=== PATIENT | female | born 1990 | race Caucasian/White ===

== ENCOUNTER 2016-06-28 13:32 | Emergency (ER) | payer MEDICAID ==
[~2016-06-28] VITALS: Ht 157.5 cm; Wt 56.0 kg
[2016-06-28 13:45] VITALS: BP 126/76; PULSE 69; RESP 16; TEMP 98.3; O2SAT 100
--- NOTE | 2016-06-28 14:09 | PD ---
HPI . b/l ankle pain for 5 days Chief Complaint: Musculoskeletal Complaint Time Seen by Provider: 14:09 Travel History International Travel<30 days: No Contact w/Intl Traveler<30days: No Traveled to known affect area: No History of Present Illness HPI 26-year-old female with no significant past medical history here with complaints of bilateral ankle pain for about 5 days after jumping off the back of a truck. Patient says she has been experiencing pain mainly when walking. She rates the pain when walking as 8/10. At rest about a 6/10. She has not tried any nqoz-vse-[id number] NSAIDs. She has not been using ice. She has not wrapped the area. She wants to find out what is going on with her ankles. She has no primary care in the area. At the time of examination patient denies any fever, chills, chest pain, shortness of breath, nausea, vomiting or abdominal pain. She denies any fatigue or weakness. PFSH Past Medical History Diminished Hearing: No Tetanus Vaccination: Unknown Influenza Vaccination: No ?: Not LMP: 06/09/16 Social History Alcohol Use: Yes (COUPLE TIMES PER WEEK) Tobacco Use: Yes (07/01 PPD) Substance Use: No Allergies-Medications (Allergen,Severity, Reaction): Coded Allergies: No Known Allergies (Unverified , 06/28/16) Reported Meds & Prescriptions Reported Meds & Active Scripts Active Ibuprofen 800 Mg Tab 800 Mg PO TID Review of Systems General / Constitutional: No: Fever Eyes: No: Visual changes HENT: No: Headaches Cardiovascular: No: Chest Pain or Discomfort Respiratory: No: Shortness of Breath Gastrointestinal: No: Abdominal Pain Genitourinary: No: Dysuria Musculoskeletal: Positive: Pain (bilateral ankle pain) Skin: No Rash Neurologic: No: Weakness Psychiatric: No: Depression Endocrine: No: Polydipsia Hematologic/Lymphatic: No: Easy Bruising Physical Exam Narrative GENERAL: AAO x 3, no acute distress, Well-nourished, well-developed patient. SKIN: Warm and dry. No visible rashes or bruising. HEAD: Normocephalic and atraumatic. EYES: No scleral icterus. No injection or drainage. EOM intact, PERRLA ENT: No nasal drainage noted. Mucous membranes pink. Airway patent. NECK: Supple, trachea midline. No JVD. CARDIOVASCULAR: Regular rate and rhythm without murmurs, gallops, or rubs. RESPIRATORY: Breath sounds equal bilaterally. No accessory muscle use. No rhonchi or rales. GASTROINTESTINAL: Abdomen soft, non-tender, nondistended. EXTREMITIES: No cyanosis or edema. According to [place] ankle rules patient does not meet criteria for imaging. There is no point tenderness, no edema, ROM is normal. Flexion and extension is normal. BACK: Nontender without obvious deformity. No CVA tenderness. PSYCH: AAO x 3, normal affect. Data Data Last Documented VS Vital Signs Date Time Temp Pulse Resp B/P Pulse Ox O2 Delivery O2 Flow Rate FiO2 06/28/16 13:45 98.3 69 16 126/76 100 Orders ^ Travon Bandage (06/28/16 14:15) MDM Medical Decision Making Medical Screen Exam Complete: Yes Emergency Medical Condition: Yes Medical Record Reviewed: Yes Differential Diagnosis Ankle sprain, ankle contusion, less likely ankle fractures Narrative Course 26-year-old female with no significant past medical history here with complaints of bilateral ankle pain for about 5 days after jumping off the back of a truck. Patient says she has been experiencing pain mainly when walking. She rates the pain when walking as 8/10. At rest about a 6/10. She has not tried any ryzx-zem-[id number] NSAIDs. She has not been using ice. She has not wrapped the area. She wants to find out what is going on with her ankles. She has no primary care in the area. At the time of examination patient denies any fever, chills, chest pain, shortness of breath, nausea, vomiting or abdominal pain. She denies any fatigue or weakness. Patient seen and examined. She does not meet criteria per [place] ankle rules. Discussed with patient that imaging is not indicated. This is likely a sprain. Discussed treatment with WILIAN. Ibuprofen provided. Advise follow with primary care provider Patient verbalized understanding of instructions, questions were answered, and thanked me for their care. I advised them if their condition worsens, please return to the nearest emergency room for further care. Diagnosis Primary Impression: Ankle sprain Qualified Code: S93.409A - Sprain of ankle, unspecified laterality, unspecified ligament, initial encounter Patient Instructions: Ankle Sprain (ED), General Instructions Additional Instructions: Please return to emergency department if your symptoms return or worsen. Follow up with your primary care provider. Take medications as prescribed. You can continue to rest her ankles. Use ice daily. Use Travon wrap as needed. Use ibuprofen for inflammatory relief as well as pain relief. Med/Other Pt SpecificInfo: Prescription(s) given Scripts Ibuprofen 800 Mg [id number] Mg PO TID #30 TAB Prov:Marcia Day DO 06/28/16 Disposition: 01 DISCHARGE HOME Condition: Stable Katherine Gardner Jun 28, 2016 14:09
[2016-06-28] MEDS ORDERED: IBUP800T23 PO (14:16)
== END 2016-06-28 14:40 | disposition home or self-care (01) ==
LOC: PHEFT 13:32
DX: S93.402A Sprain of unspecified ligament of left ankle, initial encounter (principal); S93.401A Sprain of unspecified ligament of right ankle, initial encounter; F17.200 Nicotine dependence, unspecified, uncomplicated; W17.89XA Other fall from one level to another, initial encounter; Y93.39 Activity, other involving climbing, rappelling and jumping off
CPT/HCPCS: 99283

== ENCOUNTER 2017-02-12 04:43 | Inpatient (IN) | payer MEDICAID ==
[2017-02-12] VITALS (8 sets, daily range): BP systolic 116–167; BP diastolic 70–89; PULSE 5–95; RESP 16–22; TEMP 97.5–98.2; O2SAT 100
[~2017-02-12] VITALS: Ht 160 cm; Wt 88.0 kg
[~2017-02-12 04:43] MED LIST: IBUP800T23 PO
[2017-02-12 05:50] LABS: AUTOMATED NEUTROPHIL # 7.4 TH/MM3 (1.8-7.7); BASOPHIL % 0.4 % (0.0-2.0); EOSINOPHIL # 0.2 TH/MM3 (0-0.4); EOSINOPHIL % 1.7 % (0.0-4.0); HEMATOCRIT 35.9 % (35.0-46.0); LYMPH % 27.1 % (9.0-44.0); LYMPHOCYTE # 3.2 TH/MM3 (1.0-4.8); MEAN CELL VOLUME 89.8 FL (80.0-100.0); MEAN CORPUSCULAR HEMOGLOBIN 29.4 PG (27.0-34.0); MEAN CORPUSCULAR HGB CONC 32.8 % (32.0-36.0); MONO % 8.1 % (0.0-8.0); NEUT % 62.7 % (16.0-70.0); PLATELET COUNT 229 TH/MM3 (150-450); RED CELL DISTRIBUTION WIDTH 13.9 % (11.6-17.2); WHITE BLOOD COUNT 11.8 TH/MM3 (4.0-11.0)
--- NOTE | 2017-02-12 05:52 | PD ---
HPI Chief Complaint: Related Problem Time Seen by Provider: 05:39 Travel History International Travel<30 days: No Contact w/Intl Traveler<30days: No Traveled to known affect area: No History of Present Illness HPI The patient is a 26-year-old female, G 3, P1, A1 which was stillborn who is unsure of her last menstrual period, 2 days of spotting and august, 2 days of spotting in September and nothing in October or beyond to this date. She denies any bleeding. He complains of severe midline pelvic pain for about 2 hours. She denies any fever. She has no OB follow-up and has never had an ultrasound. PFS Past Medical History Diminished Hearing: No ?: LMP: UNSURE POSSIBLY OCTOBER : 3 Para: 1 Miscarriage: 1 Social History Alcohol Use: Yes (COUPLE TIMES PER WEEK) Tobacco Use: Yes (07/01 PPD) Substance Use: No Allergies-Medications (Allergen,Severity, Reaction): Coded Allergies: No Known Allergies (Unverified , 06/28/16) Reported Meds & Prescriptions Reported Meds & Active Scripts Active Ibuprofen 800 Mg Tab 800 Mg PO TID Review of Systems Except as stated in HPI: all other systems reviewed are Neg Physical Exam Narrative GENERAL: The patient is alert, oriented 3 in moderate to severe distress with her pelvic pain. Her vital signs show pulse of 95 and blood pressure 167/89 but are otherwise normal. The temperature is 97.5. The patient is moving about continuously SKIN: Focused skin assessment warm/dry. HEAD: Atraumatic. Normocephalic. EYES: Pupils equal and round. No scleral icterus. No injection or drainage. ENT: No nasal bleeding or discharge. Mucous membranes pink and moist. NECK: Trachea midline. No JVD. CARDIOVASCULAR: Regular rate and rhythm. No murmur appreciated. RESPIRATORY: No accessory muscle use. Clear to auscultation. Breath sounds equal bilaterally. GASTROINTESTINAL: Abdomen soft, non-tender, nondistended. Hepatic and splenic margins not palpable. MUSCULOSKELETAL: No obvious deformities. No clubbing. No cyanosis. No edema. NEUROLOGICAL: Awake and alert. No obvious cranial nerve deficits. Motor grossly within normal limits. Normal speech. PSYCHIATRIC: The patient is extremely anxious; insight and judgment normal. GENITOURINARY: Normal external genitalia without lesions or erythema. Vaginal vault without blood and there is a white, nhw-gruq-sfqhwbst drainage. Cervical os was closed without drainage. There is exquisite cervical motion tenderness. Uterus exquisitely tender and 20 weeks enlarged. Bilateral adnexa slightly tender without masses. The bedside ultrasound shows approximately 20 weeks size fetus with no heart movement seen. Data Data Last Documented VS Vital Signs Date Time Temp Pulse Resp B/P (MAP) Pulse Ox O2 Delivery O2 Flow Rate FiO2 02/12/17 05:10 69 02/12/17 05:05 22 167/89 (115) 02/12/17 04:52 97.5 100 Orders Orders Complete Blood Count With Diff (02/12/17 05:25) Beta Hcg (Quant/Titer) (02/12/17 05:25) Iv Access Insert/Monitor (02/12/17 05:25) Oxygen Administration (02/12/17 05:25) Oximetry (02/12/17 05:25) Basic Metabolic Panel (Bmp) (02/12/17 05:39) Complete Rh (02/12/17 05:39) Urinalysis - C+S If Indicated (02/12/17 05:39) Us Pelvis Comp W Doppler (02/12/17 05:39) Morphine Inj (Morphine Inj) (02/12/17 06:00) Ondansetron Inj (Zofran Inj) (02/12/17 06:00) Labs Laboratory Tests Test 02/12/17 05:30 [facility] Medical Decision Making Medical Screen Exam Complete: Yes Emergency Medical Condition: Yes Medical Record Reviewed: Yes Differential Diagnosis Threatened AB, premature labor, demise, Narrative Course The patient appears to have demise with no heartbeat. The is approximately at 20 weeks. There is no vaginal bleeding present. The patient is in severe pain and her abdomen feels like contractions. I discussed the patient with Dr. Sanchez and she instructed me to send the patient to the OB emergency section of [place]. Physician Communication Physician Communication I discussed the patient with Dr. Sanchez Diagnosis Primary Impression: demise Additional Impression: Active labor Admitting Information Admitting Physician Requests: Admit Quinton Rahman MD Feb 12, 2017 05:52
[2017-02-12] MEDS ORDERED: MORPHINE SULFATE 4 MG/ML INJ IV PUSH ONE (06:00)
[2017-02-12] MEDS ORDERED: ONDANSETRON HCL 4 MG/2 ML VIAL IV ONE (06:00)
[2017-02-12 06:10] LABS: BICARBONATE 23.4 MEQ/L (21.0-32.0)
[2017-02-12 06:19] LABS: HEMO FLAGS DIFF FINAL
[2017-02-12] MEDS ORDERED: LACTATED RINGER'S 1000 ML INJ 1,000 ML IV PRN (07:20)
[2017-02-12] MEDS ORDERED: OXYTOCIN 30 UNITS-500ML PREMIX 500 ML IV ONE (07:30)
[2017-02-12] MEDS ORDERED: LIDOCAINE HCL 1% 50 ML VIAL INFIL PRN (07:30)
[2017-02-12] MEDS ORDERED: LIDOCAINE HCL 1% 50 ML VIAL I-DERMAL PRN (07:30)
[2017-02-12] MEDS ORDERED: MINERAL OIL 10 ML VIAL TOPICAL PRN (07:30)
[2017-02-12] MEDS ORDERED: SODIUM CHLORID 0.9% 500 ML INJ 500 ML IV PRN (07:30)
[2017-02-12] MEDS ORDERED: CITRIC ACID-SODIUM CITRATE LIQ 30 ML UDC PO SCH (07:30)
--- NOTE | 2017-02-12 07:30 | HHI.HP ---
HPI Chief Complaint Stillbirth diagnosed in the [facility] emergency room with delivery in route in the ambulance Date Seen: Feb 12, 2017 Time Seen: 06:45 Travel History International Travel<30 Days: No Contact w/Intl Traveler<30Days: No Known Affected Area: No History of Present Illness HPI 26yo at unknown gestational age was seen in the [facility] emergency department with abdominal and pelvic pain with an ultrasound diagnosing the absence of heartbeat. Patient proceeded to deliver in the ambulance in route a stillborn child. She was admitted to the ED downstairs and was brought appear for continued care patient states that she's had no care whatsoever the and that she's delivered a stillbirth in the past approximately a year ago. Patient continues to have pain and contractions. Weeks Gestation: 23 (Approximation) Para: 2 : 3 History Past Medical History Medical History: Denies Significant Hx Obstetric History Obstetric History 2 prior vaginal deliveries 1 with a stillbirth at greater than 22 weeks Past Surgical History Surgical History: No Previous Surgery Family History Family History: Negative Social History Alcohol Use: No Tobacco Use: No Substance Abuse: Yes (patient denies substance abuse but there are urine tox screens in the computer that are positive for cocaine in the past) Allergies-Medications (Allergen,Severity, Reaction): Coded Allergies: No Known Allergies (Unverified , 06/28/16) Home Meds Active Scripts Ibuprofen (Ibuprofen) 800 Mg Tab, 800 MG PO TID for Pain, #30 TAB Prov:Marcia Day DO 06/28/16 Review of Systems Except as stated in HPI: all other systems reviewed are Neg Physical Exam Vital Signs Date Time Temp Pulse Resp B/P (MAP) Pulse Ox O2 Delivery O2 Flow Rate FiO2 02/12/17 05:10 69 02/12/17 05:05 95 22 167/89 (115) 02/12/17 04:52 97.5 72 20 100 Narrative GENERAL: Difficult to communicate with patient I am unable to get an adequate history HEAD: Normocephalic and atraumatic. EYES: No scleral icterus. No injection or drainage. ENT: No nasal drainage noted. Mucous membranes pink. Airway patent. NECK: Supple, trachea midline. No JVD. CARDIOVASCULAR: Regular rate and rhythm without murmurs, gallops, or rubs. RESPIRATORY: Breath sounds equal bilaterally. No accessory muscle use. BREASTS: Bilateral exam showed no masses , no retractions, no nipple discharge. ABDOMEN/GI: Abdomen soft, non-tender, bowel sounds present, no rebound, no guarding Gravid to [-] weeks size placenta still in situ with a cord clamp on the cord , the baby is still in the emergency department EXTREMITIES: No cyanosis or edema. BACK: Nontender without obvious deformity. No CVA tenderness. NEUROLOGICAL: Awake and quite confused and somewhat combat of Baby was examined 805gms, c/w 22-23 weeks No obvious congenital abnormalitites Caprini VTE Risk Assessment Caprini VTE Risk Assessment: No/Low Risk (score <= 1) Caprini Risk Assessment Model Point Value = 1 Point Value = 2 Point Value = 3 Point Value = 5 Age 41-60 Minor surgery BMI > 25 kg/m2 Swollen legs Varicose veins or History of unexplained or recurrent spontaneous Oral contraceptives or hormone replacement Sepsis (< 1 month) Serious lung disease, including pneumonia (< 1 month) Abnormal pulmonary function Acute myocardial infarction Congestive heart failure (< 1 month) History of inflammatory bowel disease Medical patient at bed rest Age 61-74 Arthroscopic surgery Major open surgery (> 45 min) Laparoscopic surgery (> 45 min) Malignancy Confined to bed (> 72 hours) Immobilizing plaster cast Central venous access Age >= 75 History of VTE Family history of VTE Factor V Leiden Prothrombin [id number] Lupus anticoagulant Anticardiolipin antibodies Elevated serum homocysteine Heparin-induced thrombocytopenia Other congenital or acquired thrombophilia Stroke (< 1 month) Elective arthroplasty Hip, pelvis, or leg fracture Acute spinal cord injury (< 1 month) Prophylaxis Regimen Total Risk Factor Score Risk Level Prophylaxis Regimen 0-1 Low Early ambulation 2 Moderate Order ONE of the following: *Sequential Compression Device (SCD) *Heparin 5000 units SQ BID 3-4 Higher Order ONE of the following medications: *Heparin 5000 units SQ TID *Enoxaparin/Lovenox 40 mg SQ daily (WT < 150 kg, CrCl > 30 mL/min) *Enoxaparin/Lovenox 30 mg SQ daily (WT < 150 kg, CrCl > 10-29 mL/min) *Enoxaparin/Lovenox 30 mg SQ BID (WT < 150 kg, CrCl > 30 mL/min) AND/OR *Sequential Compression Device (SCD) 5 or more Highest Order ONE of the following medications: *Heparin 5000 units SQ TID (Preferred with Epidurals) *Enoxaparin/Lovenox 40 mg SQ daily (WT < 150 kg, CrCl > 30 mL/min) *Enoxaparin/Lovenox 30 mg SQ daily (WT < 150 kg, CrCl > 10-29 mL/min) *Enoxaparin/Lovenox 30 mg SQ BID (WT < 150 kg, CrCl > 30 mL/min) AND *Sequential Compression Device (SCD) Data Data Vital Signs Reviewed: Yes Orders Orders Complete Blood Count With Diff (02/12/17 05:25) Beta Hcg (Quant/Titer) (02/12/17 05:25) Iv Access Insert/Monitor (02/12/17 05:25) Oxygen Administration (02/12/17 05:25) Oximetry (02/12/17 05:25) Complete Rh (02/12/17 05:39) Urinalysis - C+S If Indicated (02/12/17 05:39) Us Pelvis Comp W Doppler (02/12/17 05:39) Morphine Inj (Morphine Inj) (02/12/17 06:00) Ondansetron Inj (Zofran Inj) (02/12/17 06:00) Basic Metabolic Panel (Bmp) (02/12/17 05:30) Admit Order (Ed Use Only) (02/12/17 06:07) Admit To Inpatient (02/12/17 ) Vital Signs (Adult) .Per protocol (02/12/17 07:20) Diet Liquid (02/12/17 Breakfast) Lactated Ringer's 1000 Ml Inj (Lr 1000 M (02/12/17 07:20) Lactated Ringer's 1000 Ml Inj (Lr 1000 M (02/12/17 07:20) Sodium Chlorid 0.9% 500 Ml Inj (Ns 500 M (02/12/17 07:30) Sodium Chlor 0.9% 1000 Ml Inj (Ns 1000 M (02/12/17 07:40) Lidocaine 1% Inj (50 Ml) (Xylocaine 1% I (02/12/17 07:30) Citric Acid-Sodium Citrate Liq (Bicitra (02/12/17 07:30) Fentanyl Inj (Fentanyl Inj) (02/12/17 07:30) Fentanyl Inj (Fentanyl Inj) (02/12/17 07:30) Hold Clot (02/12/17 07:20) Abo/Rh Blood Type (02/12/17 07:20) Rapid Plasma Regin (Rpr) W Ttr (02/12/17 07:20) Hepatitis Profile (02/12/17 07:20) No Care Spec Serology (02/12/17 07:20) Resp Oxygen Non Rebreathe Mask (02/12/17 ) Oxytocin 30 Units-500ml Premix (Pitocin (02/12/17 07:30) Lidocaine 1% Inj (50 Ml) (Xylocaine 1% I (02/12/17 07:30) Light Mineral Oil (Muri-Lube Oil) (02/12/17 07:30) Ob/Psych Drug Screen, Urine (02/12/17 07:20) Inpatient Certification (02/12/17 ) Rubella Immune Status (02/12/17 07:22) Labs Laboratory Tests Test 02/12/17 05:30 White Blood Count 11.8 Red Blood Count 4.00 Hemoglobin 11.8 Hematocrit 35.9 Mean Corpuscular Volume 89.8 Mean Corpuscular Hemoglobin 29.4 Mean Corpuscular Hemoglobin Concent 32.8 Red Cell Distribution Width 13.9 Platelet Count 229 Mean Platelet Volume 8.3 Neutrophils (%) (Auto) 62.7 Lymphocytes (%) (Auto) 27.1 Monocytes (%) (Auto) 8.1 Eosinophils (%) (Auto) 1.7 Basophils (%) (Auto) 0.4 Neutrophils # (Auto) 7.4 Lymphocytes # (Auto) 3.2 Monocytes # (Auto) 1.0 Eosinophils # (Auto) 0.2 Basophils # (Auto) 0.0 CBC Comment DIFF FINAL Differential Comment Blood Urea Nitrogen 13 Creatinine 0.64 Random Glucose 89 Calcium Level 8.1 Sodium Level 137 Potassium Level 4.0 Chloride Level 104 Carbon Dioxide Level 23.4 Anion Gap 10 Estimat Glomerular Filtration Rate 111 Human Chorionic Gonadotropin, Quant [id number] Assessment/Plan Problem List: (1) Vaginal delivery ICD Codes: O80 - Encounter for full-term uncomplicated delivery Status: Acute (2) demise > 22 weeks, delivered, current hospitalization ICD Codes: O36.4XX0 - Maternal care for intrauterine , not applicable or unspecified Status: Acute Assessment and Plan Patient is a G3 now P3 with delivery in the ambulance of a stillbirth. Patient still has placenta in situ and will go deliver that Order labs as well as urine tox screen Ignacia Sanchez MD Feb 12, 2017 07:30
[2017-02-12] MEDS ORDERED: SODIUM CHLOR 0.9% 1000 ML INJ 1,000 ML IV PRN (07:40)
--- NOTE | 2017-02-12 07:40 | HHI.PR ---
RANCH MANAGER Note Note Prior delivery of stillbirth 805gm in [facility] as patient was being transferred to [place]. Baby appears approx 22-23 weeks gestation. Oxytocin drip started with spontaneous delivery of intact placenta with no obstetrical injuries. EBL during placenta delivery <100cc. Ignacia Sanchez MD Feb 12, 2017 07:40
[2017-02-12] MEDS ORDERED: SODIUM CHLORIDE 0.9% FLUSH 10 ML FLUSH IV FLUSH PRN (07:45)
[2017-02-12] MEDS ORDERED: LACTATED RINGER'S 1000 ML INJ 1,000 ML IV SCH (08:00)
[2017-02-12] MEDS ORDERED: ACETAMINOPHEN 325 MG TAB PO PRN (08:00)
[2017-02-12] MEDS ORDERED: DOCUSATE SODIUM 50 MG/SENNA 8.6 MG TAB PO PRN (08:00)
[2017-02-12] MEDS ORDERED: ALUMINUM/MAGNESIUM/SIMETH 30 ML CUP PO PRN (08:00)
[2017-02-12] MEDS ORDERED: IBUPROFEN 600 MG TAB PO PRN (08:00)
[2017-02-12] MEDS ORDERED: ZOLPIDEM TARTRATE 5 MG TAB PO PRN (08:00)
[2017-02-12] MEDS ORDERED: WITCH HAZEL 50%/GLYCERIN 12.5% 40 PAD JAR TOPICAL PRN (08:00)
[2017-02-12] MEDS ORDERED: BENZOCAINE 20% TOPICAL SPRAY 60 ML CAN TOPICAL PRN (08:00)
[2017-02-12] MEDS ORDERED: OXYTOCIN 30 UNITS-500ML PREMIX 500 ML IV SCH (08:00)
[2017-02-12] MEDS ORDERED: ONDANSETRON ODT 4 MG TAB PO PRN (08:00)
[2017-02-12 08:08] LABS: BACTERIA, URINE RARE /hpf; BLOOD, URINE TRACE (NEG); COMMENT (UR) CULT NOT INDICATED; CULTURE IF INDICATED CULT NOT INDICATED; GLUCOSE,URINE NEG (NEG); KETONE, URINE NEG (NEG); MUCUS URINE FEW /lpf (OCC); NITRITE,URINE NEG (NEG); PH, URINE 6.5 (5.0-8.5); SQUAMOUS EPITHELIAL CELL URINE <1 /hpf (0-5); URINE COLOR YELLOW (YELLW/STRAW)
[2017-02-12] MEDS ORDERED: SODIUM CHLORIDE 0.9% FLUSH 10 ML FLUSH IV FLUSH SCH (09:00)
[2017-02-12 09:53] LABS: RUBELLA IGG ANTIBODY 102.6 IU/mL (10.0-500.0); RUBELLA STATUS IMMUNE (IMMUNE)
[2017-02-12] MEDS ORDERED: MEASLES, MUMPS, RUBELLA VACCINE 0.5 ML VIAL SQ ONE (16:00)
[2017-02-12] MEDS ORDERED: DIPHTH/TETANUS/ACEL PERTUSSIS (BOOSTER) 0.5 ML VIAL/PFS IM ONE (16:00)
[2017-02-12] MEDS ORDERED: IBUP800T23 PO (16:35)
--- NOTE | 2017-02-12 16:36 | HHI.DCPOC ---
Discharge Care Plan Diagnosis: (1) demise > 22 weeks, delivered, current hospitalization Report Symptoms to Your Doctor -Temperature above 100.5 degrees -Redness, of incision or excessive or foul smelling drainage -Unusual pain or calf pain -Increased vaginal bleeding -Painful or difficulty urinating -Feelings of extreme sadness or anxiety after 2 weeks Goals to Promote Your Health * To prevent worsening of your condition and complications * To maintain your health at the optimal level Directions to Meet Your Goals Take your medications as prescribed Follow your dietary instruction Follow activity as directed Ensure plenty of rest for recovery Drink fluids for hydration Keep your appointments as scheduled Take your immunizations and boosters as scheduled If your symptoms worsen call your PCP, if no PCP go to Urgent Care Center or Emergency Room Smoking is Dangerous to Your Health. Avoid second hand smoke Call the 24-hour crisis hotline for domestic abuse at Jim Ribeiro MD R2 Feb 12, 2017 16:36
[2017-02-12] MEDS ORDERED: medroxyPROGESTERone ACETATE SUSP 150 MG/ML SYRINGE IM ONE (16:45)
== END 2017-02-12 17:10 | disposition home or self-care (01) | DRG 775 ==
LOC: PHED 04:43 → PHEDA 06:10 → NEDA 06:48 → H2EB 07:07
PROVIDERS: ADMIT Obstetrics & Gynecology Obstetrics; ATTEND Obstetrics & Gynecology Obstetrics
PROC: 10E0XZZ Delivery of Products of Conception, External Approach (ICD-10-PCS; principal; 2017-02-12)
DX: O60.12X0 Preterm labor second trimester with preterm delivery second trimester, not applicable or unspecified (principal); O36.4XX0 Maternal care for intrauterine death, not applicable or unspecified; Z3A.23 23 weeks gestation of pregnancy
CPT/HCPCS: 80048; 80074; 80307; 81001; 84702; 85025; 85461; 86077; 86592; 86703; 86762; 86850; 86870; 86886; 86900; 86901; 88305; 88307; 96374; 96375; G0481; J1050; J2270; J2405; J2590

== ENCOUNTER 2017-06-16 22:59 | Emergency (ER) | payer MEDICAID, OTHER ==
[~2017-06-16] VITALS: Ht 160 cm; Wt 56.8 kg
[~2017-06-16 22:59] MED LIST changes: +IBUP1TAB7 PO; -IBUP800T23 PO
[2017-06-16 23:08] VITALS: BP 142/84; PULSE 104; RESP 16; TEMP 97.5; O2SAT 97
[2017-06-17 00:16] LABS: AUTOMATED NEUTROPHIL # 8.4 TH/MM3 (1.8-7.7); BASOPHIL # 0.1 TH/MM3 (0-0.2); BASOPHIL % 0.9 % (0.0-2.0); EOSINOPHIL # 0.2 TH/MM3 (0-0.4); EOSINOPHIL % 1.6 % (0.0-4.0); HEMATOCRIT 41.1 % (35.0-46.0); HEMOGLOBIN 14.1 GM/DL (11.6-15.3); LYMPHOCYTE # 4.8 TH/MM3 (1.0-4.8); MEAN CELL VOLUME 88.2 FL (80.0-100.0); MEAN CORPUSCULAR HEMOGLOBIN 30.4 PG (27.0-34.0); MEAN CORPUSCULAR HGB CONC 34.4 % (32.0-36.0); MEAN PLATELET VOLUME 7.8 FL (7.0-11.0); NEUT % 57.5 % (16.0-70.0); PLATELET COUNT 315 TH/MM3 (150-450); RED BLOOD COUNT 4.66 MIL/MM3 (4.00-5.30); RED CELL DISTRIBUTION WIDTH 15.2 % (11.6-17.2); WHITE BLOOD COUNT 14.6 TH/MM3 (4.0-11.0)
[2017-06-17 00:24] LABS: BACTERIA, URINE OCC /hpf; BILIRUBIN, URINE NEG (NEG); BLOOD, URINE NEG (NEG); GLUCOSE,URINE NEG (NEG); KETONE, URINE NEG (NEG); NITRITE,URINE NEG (NEG); SQUAMOUS EPITHELIAL CELL URINE <1 /hpf (0-5); URINE COLOR LIGHT-YELLOW (YELLW/STRAW); URINE LEUKOCYTE ESTERASE NEG (NEG)
[2017-06-17 00:28] LABS: ALBUMIN 4.2 GM/DL (3.4-5.0); ALT (GPT) 27 U/L (10-53); AST (GOT) 14 U/L (15-37); BICARBONATE 19.9 MEQ/L (21.0-32.0); CALCIUM 8.3 MG/DL (8.5-10.1); CHLORIDE 106 MEQ/L (98-107); CREATININE 1.01 MG/DL (0.50-1.00); GLOMERULAR FILTRATION RATE 65 ML/MIN (>89); GLUCOSE,RANDOM 83 MG/DL (74-106); SODIUM (NA) 138 MEQ/L (136-145)
[2017-06-17 00:30] VITALS: BP 134/65; PULSE 103; RESP 16; TEMP 98; O2SAT 98
[2017-06-17 00:36] LABS: ALKALINE PHOSPHATASE 88 U/L (45-117); BLOOD UREA NITROGEN 9 MG/DL (7-18); TOTAL BILIRUBIN ADULT 0.5 MG/DL (0.2-1.0); TOTAL PROTEIN 8.4 GM/DL (6.4-8.2)
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
[2017-06-17 05:35] VITALS: BP 116/61; PULSE 84; RESP 17; TEMP 98.2; O2SAT 96
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
--- NOTE | 2017-06-17 11:58 | PD ---
Physical Exam Date Seen by Provider: Jun 17, 2017 Time Seen by Provider: 11:57 Narrative 27-year-old female previously medically cleared for psychiatric evaluation has been seen by psychiatric staff and deemed psychiatrically stable for discharge at this time. Patient remains medically stable for discharge. Patient follow- up is based on psychiatric note. Data Data Last Documented VS Vital Signs Date Time Temp Pulse Resp B/P (MAP) Pulse Ox O2 Delivery O2 Flow Rate FiO2 06/17/17 11:05 06/17/17 05:35 98.2 84 17 96 Room Air Orders Orders Psych Screen (06/16/17 23:15) Complete Blood Count With Diff (06/16/17 23:15) Comprehensive Metabolic Panel (06/16/17 23:15) Urinalysis - C+S If Indicated (06/16/17 23:15) Drug Screen, Random Urine (06/16/17 23:15) Diet Regular Basic (06/17/17 Breakfast) Diet Regular Basic (06/17/17 Lunch) Labs Laboratory Tests Test 06/16/17 23:20 06/16/17 23:51 White Blood Count 14.6 TH/MM3 Red Blood Count 4.66 MIL/MM3 Hemoglobin 14.1 GM/DL Hematocrit 41.1 % Mean Corpuscular Volume 88.2 FL Mean Corpuscular Hemoglobin 30.4 PG Mean Corpuscular Hemoglobin Concent 34.4 % Red Cell Distribution Width 15.2 % Platelet Count 315 TH/MM3 Mean Platelet Volume 7.8 FL Neutrophils (%) (Auto) 57.5 % Lymphocytes (%) (Auto) 33.0 % Monocytes (%) (Auto) 7.0 % Eosinophils (%) (Auto) 1.6 % Basophils (%) (Auto) 0.9 % Neutrophils # (Auto) 8.4 TH/MM3 Lymphocytes # (Auto) 4.8 TH/MM3 Monocytes # (Auto) 1.0 TH/MM3 Eosinophils # (Auto) 0.2 TH/MM3 Basophils # (Auto) 0.1 TH/MM3 CBC Comment DIFF FINAL Differential Comment Blood Urea Nitrogen 9 MG/DL Creatinine 1.01 MG/DL Random Glucose 83 MG/DL Total Protein 8.4 GM/DL Albumin 4.2 GM/DL Calcium Level 8.3 MG/DL Alkaline Phosphatase 88 U/L Aspartate Amino Transf (AST/SGOT) 14 U/L Alanine Aminotransferase (ALT/SGPT) 27 U/L Total Bilirubin 0.5 MG/DL Sodium Level 138 MEQ/L Potassium Level 3.4 MEQ/L Chloride Level 106 MEQ/L Carbon Dioxide Level 19.9 MEQ/L Anion Gap 12 MEQ/L Estimat Glomerular Filtration Rate 65 ML/MIN Urine Color LIGHT-YELLOW Urine Turbidity CLEAR Urine pH 5.0 Urine Specific [place] 1.003 Urine Protein NEG mg/dL Urine Glucose (UA) NEG mg/dL Urine Ketones NEG mg/dL Urine Occult Blood NEG Urine Nitrite NEG Urine Bilirubin NEG Urine Urobilinogen LESS THAN 2.0 MG/DL Urine Leukocyte Esterase NEG Urine RBC 1 /hpf Urine WBC 1 /hpf Urine Squamous Epithelial Cells <1 /hpf Urine Bacteria OCC /hpf Microscopic Urinalysis Comment CULT NOT INDICATED Urine Opiates Screen NEG Urine Barbiturates Screen NEG Urine Amphetamines Screen NEG Urine Benzodiazepines Screen NEG Urine Cocaine Screen POS Urine Cannabinoids Screen NEG MDM Medical Record Reviewed: Yes Supervised Visit with DHARMESH: Yes Narrative Course 27-year-old female previously medically cleared for psychiatric evaluation has been seen by psychiatric staff and deemed psychiatrically stable for discharge at this time. Patient remains medically stable for discharge. Patient follow- up is based on psychiatric note. Diagnosis Primary Impression: Medical clearance for psychiatric admission Additional Impressions: Cocaine abuse Substance induced mood disorder Referrals: ACT (Out patient) Medication Management [facility] Patient Instructions: General Instructions, Cocaine Abuse (ED) Departure Forms: Tests/Procedures Disposition: 01 DISCHARGE HOME Condition: Stable Gerardo Ruth Jun 17, 2017 11:58
== END 2017-06-17 12:02 | disposition home or self-care (01) ==
LOC: NEPJ 22:59
DX: F14.14 Cocaine abuse with cocaine-induced mood disorder (principal); F17.210 Nicotine dependence, cigarettes, uncomplicated
CPT/HCPCS: 80053; 80307; 81001; 85025; 99283